=== PATIENT | male | born 1945 | race Caucasian/White ===

== ENCOUNTER 2018-04-08 13:11 | Outpatient (RCR) ==
[2018-04-22 13:29] VITALS: BP 126/52
== END 2018-05-05 23:59 ==
LOC: PUL.REHAB 13:11
PROVIDERS: ATTEND General Practice
DX: J44.9 Chronic obstructive pulmonary disease, unspecified (principal)

== ENCOUNTER 2018-05-06 06:58 | Outpatient (RCR) ==
[2018-05-30 13:04] VITALS: BP 112/62
== END 2018-06-02 23:59 ==
LOC: PUL.REHAB 06:58
PROVIDERS: ATTEND General Practice
DX: J44.9 Chronic obstructive pulmonary disease, unspecified (principal)

== ENCOUNTER 2018-06-03 06:40 | Outpatient (RCR) | END 2018-07-03 23:59 | LOC: PUL.REHAB 06:40 | PROVIDERS: ATTEND General Practice | DX: J44.9 Chronic obstructive pulmonary disease, unspecified (principal) ==

== ENCOUNTER 2018-07-04 08:29 | Outpatient (RCR) | END 2018-08-02 23:59 | LOC: PUL.REHAB 08:29 | PROVIDERS: ATTEND General Practice | DX: R06.02 Shortness of breath (principal); J44.9 Chronic obstructive pulmonary disease, unspecified ==

== ENCOUNTER 2018-08-03 07:47 | Outpatient (RCR) | END 2018-09-02 23:59 | LOC: PUL.REHAB 07:47 | PROVIDERS: ATTEND General Practice | DX: J44.9 Chronic obstructive pulmonary disease, unspecified (principal) ==

== ENCOUNTER 2018-09-03 09:29 | Outpatient (RCR) | END 2018-09-27 08:47 | disposition home or self-care (01) | LOC: PUL.REHAB 09:29 | PROVIDERS: ATTEND General Practice | DX: J44.9 Chronic obstructive pulmonary disease, unspecified (principal) ==